=== PATIENT | female | born 1980 | race Caucasian/White ===

== ENCOUNTER 2016-11-12 18:49 | Emergency (ER) | payer SELFPAY ==
[~2016-11-12] VITALS: Ht 160 cm; Wt 63.1 kg
[2016-11-12 19:38] LABS: ADD MIUA? NO; BILIRUBIN NEGATIVE; BLOOD NEGATIVE; COLOR YELLOW ((YELLOW)); GLUCOSE (STRIP) NEGATIVE; KETONES NEGATIVE; LEUKOCYTES NEGATIVE; NITRITE NEGATIVE; PROTEIN (STRIP) NEGATIVE; UCUL ADDED? NO; UROBILINOGEN 0.2 MG/DL (0.2-1.0)
[2016-11-12 19:44] LABS: SPECIFIC GRAVITY 1.062 (1.000-1.030)
[2016-11-12 19:48] LABS: HEMATOCRIT 40.4 % (36.0-46.0); MCH 31.3 PG (29.0-34.0); MCHC 33.9 G/DL (30.0-36.0); MCV 92.2 FL (83-99); MEAN PLAT.VOLUME 9.5 uM^3 (9.5-12.4); PLATELET COUNT 309 K/uL (156-360); RBC DIS.WIDTH-CV 13.9 % (11.8-14.6); RBC DIS.WIDTH-SD 45.7 % (39-53); RED BLOOD COUNT 4.38 M/uL (3.80-5.20); WHITE BLOOD COUNT 13.5 K/uL (4.1-10.2)
[2016-11-12 20:02] LABS: CHLORIDE 108 mEq/L (99-109)
[2016-11-12 20:03] LABS: POTASSIUM 4.4 mEq/L (3.7-5.4); SODIUM 140 mEq/L (136-147)
[2016-11-12 20:05] LABS: GLUCOSE 93 mg/dL (70-99)
[2016-11-12 20:06] LABS: ANION GAP 10 MEQ/L (2-14)
[2016-11-12 20:07] LABS: TOTAL BILIRUBIN 0.7 mg/dL (0.0-1.0)
[2016-11-12 20:08] LABS: ALKALINE PHOSPHATASE 37 IU/L (3-129); GFR ESTIMATE (CALCULATED) > 59 mL/min/
[2016-11-12 20:10] LABS: UREA NITROGEN (BUN) 9 mg/dL (9-23)
[2016-11-12 20:17] LABS: QUANTITATIVE HCG < 4.0 MIU/ML
[2016-11-12 22:37] VITALS: BP 149/72
== END 2016-11-12 22:37 | disposition home or self-care (01) ==
LOC: EME 18:49 → RME 18:49
DX: K59.00 Constipation, unspecified (principal); N83.201 Unspecified ovarian cyst, right side; R11.2 Nausea with vomiting, unspecified
CPT/HCPCS: 76856; 80053; 81003; 84702; 85027; 99281; 99284

== ENCOUNTER → 2016-11-12 | Outpatient (CLI) | payer SELFPAY | END | disposition home or self-care (01) | LOC: RAD 13:30 | DX: N20.0 Calculus of kidney (principal); N83.01 Follicular cyst of right ovary; K59.00 Constipation, unspecified; R10.32 Left lower quadrant pain | CPT/HCPCS: 74177 ==

== ENCOUNTER 2017-08-08 12:13 | Outpatient (CLI) | payer OTHER ==
[2017-08-08 12:30] VITALS: BP 125/76
== END 2017-08-08 15:10 | disposition home or self-care (01) ==
LOC: LDRP-OP → 2WEST 12:14 → LDRP-OP 11-23 09:37
DX: O36.8130 Decreased fetal movements, third trimester, not applicable or unspecified (principal); O35.8XX0 Maternal care for other (suspected) fetal abnormality and damage, not applicable or unspecified; Q79.3 Gastroschisis; O99.343 Other mental disorders complicating pregnancy, third trimester; F31.9 Bipolar disorder, unspecified; O99.513 Diseases of the respiratory system complicating pregnancy, third trimester; J45.909 Unspecified asthma, uncomplicated; M79.1 Myalgia; Z3A.29 29 weeks gestation of pregnancy; F11.11 Opioid abuse, in remission; Z72.89 Other problems related to lifestyle
CPT/HCPCS: 59025; G0378

== ENCOUNTER 2017-08-17 21:39 | Outpatient (CLI) | payer OTHER ==
[~2017-08-17] VITALS: Ht 157.5 cm; Wt 72.0 kg
[2017-08-17 22:21] VITALS: BP 118/63
[2017-08-17 22:51] VITALS: BP 116/66
[2017-08-17 23:02] LABS: EOSINOPHIL (%) 1.8 % (0-5); EOSINOPHIL COUNT 0.3 K/uL (0-0.3); HEMATOCRIT 30.1 % (36.0-46.0); IMMATURE GRANULOCYTE (%) 1.3 % (0.0-0.7); IMMATURE GRANULOCYTE COUNT 0.2 K/uL; INSTRUMENT ABS NEUTROPHIL CT 12.6 K/uL; LYMPHOCYTE COUNT 1.8 K/uL (1.0-2.8); MCHC 34.2 G/DL (30.0-36.0); MCV 93.5 FL (83-99); MEAN PLAT.VOLUME 9.7 uM^3 (9.5-12.4); MONOCYTE (%) 9.3 % (3-12); MONOCYTE COUNT 1.5 K/uL (0-0.8); NEUTROPHIL (%) 76.4 % (45-76); NEUTROPHIL COUNT 12.6 K/uL (1.8-6.4); PLATELET COUNT 271 K/uL (156-360); RED BLOOD COUNT 3.22 M/uL (3.80-5.20); WHITE BLOOD COUNT 16.5 K/uL (4.1-10.2)
[2017-08-17] MEDS ORDERED: TRAMADOL HCL50 MG PO (23:11)
[2017-08-17] MEDS ORDERED: LAMICTAL100 MG PO (23:11)
[2017-08-17] MEDS ORDERED: PRENATAL TABLE1 EAC3 PO (23:11)
[2017-08-17 23:21] VITALS: BP 116/70
[2017-08-17 23:51] VITALS: BP 111/67
[2017-08-18 00:04] VITALS: BP 115/66
[2017-08-18 01:04] VITALS: BP 111/56
[2017-08-18 02:24] LABS: CANDIDA DNA PROBE NEGATIVE; GARDNERELLA DNA PROBE NEGATIVE; INTERNAL CONTROL VALID? YES
[2017-08-18 02:53] LABS: AMPHETAMINES QUANT VALUE 0 NG/ML; BARBITUATES QUANT VALUE 0 NG/ML; BENZODIAZEPINES QUANT VALUE 0 NG/ML; BENZODIAZEPINES, URINE SCREEN Negative (200 ng/mL); MARIJUANA QUANT VALUE 0 NG/ML; OPIATES QUANTITATIVE VALUE 0 NG/ML; PHENCYCLIDINE QUANT VALUE 0 NG/ML
[2017-08-19 13:33] LABS: CHLAMYDIA TRACHOMATIS NEGATIVE; NEISSERIA GONORRHOEAE NEGATIVE
== END 2017-08-18 01:30 | disposition short-term general hospital (02) ==
LOC: LDRP-OP → 2WEST 21:40 → LDRP-OP 11-16 15:18
PROVIDERS: Obstetrics & Gynecology
DX: O42.013 Preterm premature rupture of membranes, onset of labor within 24 hours of rupture, third trimester (principal); O35.8XX0 Maternal care for other (suspected) fetal abnormality and damage, not applicable or unspecified; O99.513 Diseases of the respiratory system complicating pregnancy, third trimester; J45.909 Unspecified asthma, uncomplicated; O99.343 Other mental disorders complicating pregnancy, third trimester; F31.9 Bipolar disorder, unspecified; F41.9 Anxiety disorder, unspecified; Z3A.30 30 weeks gestation of pregnancy; Z87.891 Personal history of nicotine dependence
CPT/HCPCS: 59025; 80306 90; 85025; 86850; 86870; 86900; 86901; 86905; 86920; 87086; 87480; 87491; 87510; 87591; 87660; G0378; J0290; J0702; J3475; J7050; J7120